=== PATIENT | female | born 1995 | race American Indian/Alaskan Native ===

== ENCOUNTER 2017-11-06 23:10 | Inpatient (IN) | payer MEDICAID ==
[2017-11-07] MEDS ORDERED: Ondansetron 4 MG/2 ML SDV IV PRN (00:01)
[2017-11-07] MEDS ORDERED: Lidocaine 1% 30 ML SDV INJECT PRN (00:01)
[2017-11-07] MEDS ORDERED: Acetaminophen 325 MG Tab PO PRN (00:01)
[2017-11-07] MEDS ORDERED: Methylergonovine 0.2 MG/1 ML Amp IM PRN (00:01)
[2017-11-07] MEDS ORDERED: Misoprostol 400 MCG (4 X 100 MCG TAB) RECTAL PRN (00:01)
[2017-11-07] MEDS ORDERED: Carboprost Tromethamine 250 MCG/1 ML Amp IM PRN (00:01)
[2017-11-07] MEDS ORDERED: Lactated Ringers 500 ML IV ONE (00:01)
[2017-11-07] MEDS ORDERED: Tranexamic Acid 1,000 MG in Sodium Chloride 0.9% 100 ML IV PRN (00:01)
[2017-11-07] MEDS ORDERED: Sodium Chloride 0.9% 10 ML Syringe FLUSH PRN (00:01)
[2017-11-07] MEDS ORDERED: Oxytocin/Normal Saline 30 UNIT/500 ML BAG IV SCH ×2 (00:45→10:00)
--- NOTE | 2017-11-07 02:30 | HP ---
CHIEF COMPLAINT: Increasing frequency and severity of contractions. HISTORY OF PRESENT ILLNESS: A 22-year-old , presented to the hospital at 38 weeks 3 days' gestation based on last menstrual period and 22-week ultrasound, reporting increasing severity and frequency of contractions. Contractions have been occurring approximately 6 in an hour throughout the day and then increased in number to now every 6 minutes apart. Severity increased around 9:00 p.m. on 11/06/2017. Reports the contractions are now about 6/10 in severity. On cervical exam, she was found to be 4 cm dilated, 90% effaced with intact membranes. She reports she has had headaches for the past 2 weeks and tonight she started seeing floating spots in her vision. She has had swollen hands and feet throughout the last few weeks of . movement has been good overall. She has had 1 episode of sharp right upper quadrant pain yesterday that lasted about approximately 10 seconds. HISTORY: care at [facility] with Lizzie Freed for first 33 weeks, care transferred to Dr. Yakov Zaldivar. History of twins on maternal side of family. Blood type AB positive, antibody screen negative, rubella immune, RPR nonreactive, HIV nonreactive, HBsAg negative. GC, chlamydia, and wet prep negative for bacterial vaginosis. One- hour glucose test of 100. Hepatitis C negative. Menarche age 15, irregular cycles PAST MEDICAL HISTORY: Anemia of . PAST SURGICAL HISTORY: [place] teeth removal. FAMILY HISTORY: Mother with allergies and asthma. Father, no known medical conditions. Maternal grandmother with diabetes and hypertension, currently with liver failure. No known history of father's parents. SOCIAL HISTORY: The patient is not , but is living with father of the baby, Sole Em, this is their first child together. 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 CURRENT MEDICATIONS: 1. vitamin. 2. Iron supplement. ALLERGIES: No known allergies. REVIEW OF SYSTEMS: No shortness of breath, fever, or chills. No nausea or vomiting. No diarrhea or constipation. Does have mild swelling of the ankles. Positive for headache for the past 2 weeks, floating spots in vision. One episode of sharp right upper quadrant pain. No skin rash. PHYSICAL EXAMINATION: Vital Signs: 98.5 F Temp, Pulse 67, BP 171/82, recheck 10 minutes later of 145/ 82. Respirations 16 on Room air HEENT: Head is normocephalic and atraumatic. Mucosal membranes are moist. Neck: Supple. No adenopathy. Heart: Regular without any murmur. Lungs: Clear to auscultation bilaterally. Abdomen: Gravid, nontender. Baseline heart rate 130. Nonreactive stress test reassuring category 1 tracing. Cervix 4 cm, 90% effaced. Bag of water intact. Bag of water was ruptured with Amnio Hook, clear fluid with slight pink color. LABORATORY DATA: Hemoglobin of 11.5, platelets 211. AST 20, ALT 12. Protein: Creatinine Ratio of 0.08. Creatinine of 0.7. Trace protein, ketones, and moderate leukocyte esterase in urine. ASSESSMENT: 1. A now 38 weeks 4 day gestation with intrauterine based on last menstrual period. 2. 1, para 0. 3. Blood type AB positive, rubella immune, group B strep negative. 4. Anemia in . 5. Rule out gestational hypertension versus preeclampsia. PLAN: With gestational htn and active labor, will proceed as above. At this time, anticipate that the rupture of membranes will continue to progress in the patient through labor. Anticipating a vaginal delivery. The patient understands things may change or arise that she may need alternate delivery such as vacuum-assisted section. The patient's questions about pain control options during delivery were answered, and all other questions have been answered. seen and agreed with med student-ROLY. [facility] /[id number] DAMARI
[2017-11-07] MEDS: Lactated Ringers 1,000 ML IV SCH ×5 (02:55→22:16)
[2017-11-07] MEDS ORDERED: Bupivacaine 0.75%/D5W 2 ML Amp ONE (05:01)
[2017-11-07] MEDS ORDERED: fentaNYL 100 MCG/2 ML SDV ONE (05:01)
[2017-11-07] MEDS ORDERED: EPINEPHrine 1 MG/ML SDV ONE (05:02)
--- NOTE | 2017-11-07 05:31 | PCM.SN ---
- Free Text/Narrative Note: Intrathecal. Sitting position. Sterile prep and drape. 1 % lidocaine w bicarb for skinwheal to L3 L4 interspace. Introducer, 24 ga pencan x 1. Pos CSF, neg heme, neg parasthesia. 20 mcg pf sufenta, 30 mcg pf fentanyl, 0.4 ml pf ns and 6 mg of 0.75 % pf bupivacaine injected after CSF aspiration. Pt to L lateral position. Procedure time 0500 to 0535.
--- NOTE | 2017-11-07 08:40 | OBOUT ---
DATE: 11/06/2017 DATE AND TIME OF NST: Date: 11/06/2017. Time: 2320 hours to 2340 hours. REASON FOR NST: 1. Intrauterine at 38 and 3/7 weeks', going on to 38 and 4/7 weeks' on 11/07/2017, confirmed with 22-week ultrasound. 2. Gestational hypertension versus preeclampsia. 3. Active labor with contractions and cervical change. 4. Group B streptococcus negative. 5. G1, P0. NST INTERPRETATION: During this time period, heart tone baseline is approximately 145 and there are at least two 15 x 15 beat per minute accelerations making this strip reactive. It is also noted to be reassuring. Tocometer reveals potential of 6 contractions felt by patient and she is breathing through them. ASSESSMENT: 1. Nonstress test, reactive and reassuring. 2. Tocometer with contractions. The patient is breathing through them. Blood pressure initially 171/82, heart rate 67, temperature 98.5. Recheck 145/82, heart rate 59. Vaginal exam per nurse revealed her to be 4 cm, 90% effaced, vertex suspected, and bag of water felt. I was called shortly after this NST was performed, and I did discuss the case with the nurse and decision was to admit the patient with the need for further evaluation and management. For history and physical, records were called for, reviewed, summarized and supplemented by patient history. Please see Gloria Varma, MS-III notes in regard to this, done in conjunction with her. In addition, review of systems were reviewed fully and felt to be contributory for what is listed. On organ pipe finisher of 11/07/2017, around 0013 hours vaginal exam done by myself did reveal her to be 4 cm, 90% effaced, 0 to +1 station, vertex suspected and artificial rupture of membranes was done after discussion with patient yielding copious amounts of pinkish clear fluid. PLAN: The patient has been admitted. The above procedures had been performed with NST first and then subsequent artificial rupture of membranes. Discussed with patient pain management options. Following clinically and closely. We will await labs for her preeclampsia and follow for any signs or symptoms of severe preeclampsia otherwise. The patient understands and agrees with the above treatment plan. Did discuss with her the potential treatment options to prevent seizures and stroke related to preeclampsia as well as potential need for further augmentation of labor. [facility] /[id number]
[2017-11-07] MEDS ORDERED: ceFAZolin 2 GM in Premix Bag 1 BAG IV ONE (09:46)
[2017-11-07] MEDS ORDERED: Citric Acid/Sodium Citrate Solution 30 ML Cup PO ONE (09:46)
[2017-11-07] MEDS ORDERED: ePHEDrine 50 MG/ML SDV IVPUSH PRN (09:47)
[2017-11-07] MEDS ORDERED: Acetaminophen/oxyCODONE 325-5 MG Tab PO PRN ×2 (09:47)
[2017-11-07] MEDS ORDERED: Naloxone 2 MG/2 ML Syringe IVPUSH PRN (09:47)
[2017-11-07] MEDS ORDERED: diphenhydrAMINE 50 MG/ML SDV IVPUSH PRN (09:47)
--- NOTE | 2017-11-07 09:51 | PN ---
DATE: 11/07/2017 SUBJECTIVE: The patient is starting to feel some discomfort as her intrathecal is wearing off. She is able to move her feet. She has been starting to feel her contractions now and having urges. OBJECTIVE: Vital Signs: Temperature 100.4, recheck 100.3; O2 saturations 96% on room air. Appearance: Lying in the bed, able to lie flat. Breathing through some of her contractions. Vaginal: Reveals her to be anterior rim, 0 to +1 station, vertex suspected with bloody show noted. heart tones have been in the 140s to 150s. One acceleration noted with vaginal exam. Tocometer reveals contractions every 2 to 4 minutes. ASSESSMENT: Intrauterine at 38 and 4/7 weeks, confirmed with a 22- week ultrasound with gestational hypertension with no labs to suggest preeclampsia. She was admitted in active labor. Group B Streptococcus negative. G1, P0, now status post nonstress test upon admission. Artificial rupture of membranes and Pitocin on 11/07/2017, with nearing second stage of labor. Starting to feel pain at this time. PLAN: We will continue to follow clinically and closely. In light of her fever, I did discuss with her following status closely. Consider delivery as soon as possible and proceed from there. The patient understands and agrees with the above treatment and plan. [facility] /[id number]
[2017-11-07] MEDS ORDERED: Methylergonovine 0.2 MG/1 ML Amp ONE (11:06)
--- NOTE | 2017-11-07 12:37 | PN ---
DATE: 11/07/2017 SUBJECTIVE: The patient has been feeling her pain. She has been pushing for over 2 and almost 2.5 hours at this current time of dictation. She has been pushing with good effort. OBJECTIVE: heart tones 120s to 130s, 2 accelerations are seen on current strip. Tocometer reveals contractions every 2 minutes on average. Vaginal exam reveals her to be complete with good pushing effort, and arrest of descent with no evidence of descent since she was initially evaluated by myself when she was found to be 9 cm. ASSESSMENT AND PLAN: Intrauterine at 38 and 4/7 weeks, now nearing prolonged second stage of labor with arrest of descent. I did discuss the patient's case with the patient and shared decision and recommendation made to proceed with section. I did discuss with her, her mother and her male partner, risks, benefits, alternatives, and complications of including but not limited to infection; bleeding; damage to internal organs such as bowel, bladder, tubes, uterus, sometimes fetus, rarely needing blood transfusion or further surgery, and rare maternal or . She understands, agrees, and wishes to proceed. Verbal and written consent were obtained. Questions were answered. We will proceed to the OR when ready. [facility] /[id number] DAMARI
[2017-11-07] MEDS ORDERED: Dexamethasone 4 MG/ML SDV IV ONE (12:54)
[2017-11-07] MEDS ORDERED: ePHEDrine 50 MG/ML SDV IV ONE (12:54)
[2017-11-07] MEDS ORDERED: Ketorolac 30 MG/ML SDV IVPUSH ONE (12:54)
[2017-11-07] MEDS ORDERED: Bupivacaine 0.75%/D5W 2 ML Amp INJECT ONE (12:54)
[2017-11-07] MEDS ORDERED: Ondansetron 4 MG/2 ML SDV IV ONE (12:54)
[2017-11-07] MEDS ORDERED: Morphine PF 1 MG/ML Amp IVPUSH ONE (12:54)
[2017-11-07] MEDS ORDERED: fentaNYL 100 MCG/2 ML SDV ITHECAL ONE (12:58)
[2017-11-07] MEDS ORDERED: Sodium Chloride 0.9% 10 ML SDV ONE (12:58)
--- NOTE | 2017-11-07 15:19 | OR ---
DATE: 11/07/2017 PREOPERATIVE DIAGNOSES: 1. Intrauterine 38 and 4/7 weeks, confirmed with a 22-week ultrasound. 2. Prolonged second stage of labor. 3. Arrest of descent. 4. Gestational hypertension. 5. Active labor upon admission. 6. Group B Streptococcus negative. 7. G1, P0. POSTOPERATIVE DIAGNOSES: 1. Intrauterine 38 and 4/7 weeks, confirmed with a 22-week ultrasound-delivered. 2. Prolonged second stage of labor. 3. Arrest of descent. 4. Gestational hypertension. 5. Active labor upon admission. 6. Group B Streptococcus negative. 7. G1, P0. 8. [place]-tinged urine initially after delivery of the infant, clearing currently. 9. Occiput posterior presentation. 10.Uterine atony, requiring Methergine. PROCEDURES PERFORMED: 1. On 11/06/2017, a nonstress test. 2. On 11/07/2017, underwent artificial rupture of membranes, Pitocin augmentation, and subsequently primary low transverse section with 2-layer uterine closure. ASSISTANTS: 1. Harrison Zapata MD. 2. Gloria Varma MS-III. ANESTHESIA: Spinal. ESTIMATED BLOOD LOSS: 800 mL. INTRAVENOUS FLUIDS: 1500 mL of lactated Ringer's and 300 mL of Pitocin. URINE OUTPUT: 200 mL; pink-tinged initially, now clearing to more of a yellow color. START: 1047 hours. UTERINE INCISION: 1058 hours. DELIVERY: 1059 hours. STOP: 1118 hours. FINDINGS: Female, scores of 9 and 9, weight pending. DESCRIPTION OF PROCEDURE IN DETAIL: After proper consent was obtained, the patient was brought to the operating room where spinal anesthetic was administered. A Krause was placed in the preop under sterile conditions. The abdomen was prepped and draped in the normal sterile fashion. The patient was placed in supine position with left lateral tilt. A skin incision was then made over the lower abdomen in a transverse Pfannenstiel-type fashion. This was carried down the fascia and scored in the midline. The subcutaneous tissue was raked laterally with Heredia retractor, and the fascial incision was extended in transverse fashion using curved Mancini's. Pola clamps x2 were used to grasp the superior aspect of fascia. The rectus muscles were dissected from the fascia using sharp and blunt technique. In a similar fashion, Pola clamps x2 were used to grasp the inferior portion of the incision; and rectus and pyramidalis muscles were dissected from the fascia using sharp and blunt technique. Rectus muscles were then in the midline with blunt technique. The abdominal cavity was then entered in a blunt technique. Incision was extended superiorly and inferiorly in a blunt technique. Phil O large retractor was then introduced and used. Vesicouterine peritoneum was identified and incised in transverse fashion with Metzenbaum scissors, and a bladder flap was made digitally. A curvilinear incision was made on the lower uterine segment at 1058 hours. Uterus was entered sharply. Clear fluid returned. The uterine incision was then extended in a transverse fashion using blunt technique. vertex was then delivered from the pelvis up into and through the incision followed by rest of the without difficulty. Mouth and nares were suctioned. Cord was doubly clamped and cut, and the infant was brought over to the team. Then, approximately 10 mL of cord blood was obtained for labs. Placenta was delivered with gentle cord traction and fundal massage. Uterine cavity was cleared of all blood clots, and debris with a lap sponge. Hanson clamps were used to grasp the incision. This was closed in a running locked fashion and tied at the lateral margin with 1-0 Vicryl. There was some extension of the uterine incision minimally on the left lateral portion inferiorly approximately 1.5 cm, which was incorporated in this repair. Uterine atony was noted, and Methergine was called for and given. A second imbricating layer was then applied using 1-0 Vicryl and tied at the lateral margins. First inspection of the uterine incision revealed hemostasis. Phil O retractor was then removed; and paracolic gutters were then cleared of all blood clots, and debris with lap sponge. Anterior cul-de-sac was irrigated copiously, and all blood clots were removed. Second and final inspection of the uterine incision and anterior cul-de-sac revealed hemostasis. The rectus muscles were then reapproximated in the midline with a figure-of- eight stitch using 1-0 Vicryl. Subfascial tissue was found to be hemostatic. Fascia was closed in a running fashion and tied at the lateral margin with 0 looped PDS. Subcutaneous tissue was irrigated copiously. Hemostasis ws reassured. Skin was reapproximated with medium lexi. Sterile Aquacel dressing was applied. The uterine fundus was firm and massaged at the conclusion of the case. No immediate complications were noted. Sponge, lap, and needle counts were correct. The patient received 2 g of Ancef preoperatively and Pitocin per protocol and will receive Toradol at the conclusion of the case for pain control. Mother and are currently stable at the time of dictation. [facility] /[id number] DAMARI
[2017-11-07] MEDS: Simethicone 80 MG Tab.Chew PO SCH ×3 (15:35→23:09)
[2017-11-07] MEDS ORDERED: Oxytocin/Normal Saline 30 UNIT/500 ML BAG IV ONE (15:40)
[2017-11-07] MEDS: Ketorolac 30 MG/ML SDV IVPUSH SCH ×2 (17:25→23:10)
[2017-11-07] MEDS: Docusate Sodium 100 MG Cap PO PRN (23:09)
[2017-11-08] MEDS: Ketorolac 30 MG/ML SDV IVPUSH SCH (05:28)
--- NOTE | 2017-11-08 10:32 | PN ---
DATE: 11/08/2017 SUBJECTIVE: The patient states she is feeling well. She is sitting up in bed and has appetite for her morning breakfast. Se has been able to ambulate in the room: denies pain radiating down the back of her legs, in her lower back, or gait disturbances. Krause catheter still in place and draining a clear yellow urine. Her lochia amount is described as more than a menstrual period. She does not have any abdominal pain. There is shadowing on her Aquacel dressing over the umbilical site, localized to the center of the Aquacel dressing, approximately 6 cm long and 2 cm high. Nurses have marked the borders of the shadowing to evaluate further spread during recovery. The patient denies fever, chills, headache, nausea, shortness of breath. OBJECTIVE: Vital Signs: Temperature 98.4, pulse 70, respirations 16 on room air, blood pressure 132/63. HEENT: Head normocephalic, atraumatic. Mucosal membranes are moist. Pupils PERRLA. Heart: S1, S2 and regular rate and rhythm. There is a soft systolic murmur at the left sternal border. Lungs: Clear to auscultation bilaterally. No crackles or wheezes. Abdomen: Bowel sounds auscultated in the upper left and right quadrants. Fundus is firm, 1 cm below the umbilicus. Extremities: There is +1 edema in feet bilaterally. Neurologic: Alert and oriented x3. Skin: Warm and dry. LABORATORY DATA: Hemoglobin of 9.9, platelets 178. ASSESSMENT: - Day 1 post-primary section at 38w4d gestation - 22 yo - Gestational hypertension - AB positive blood type, GBS negative, Rubella immune - Prolonged 2nd stage of labor - Macrosomic infant > 4000 g Murmur most likely physiologic murmur of due to increased blood volume. PLAN: Continue routine cares. Mother will continue to breastfeed infant. Expecting discharge home the day after tomorrow, possibly tomorrow evening. Followup will be with Dr. Zaldivar at the appropriate time. [facility] /[id number] DAMARI
[2017-11-08] MEDS: Ferrous Sulfate 325 MG Tab PO SCH (12:52)
[2017-11-08] MEDS: Simethicone 80 MG Tab.Chew PO SCH ×4 (12:52→21:03)
[2017-11-08] MEDS: Docusate Sodium 100 MG Cap PO PRN ×2 (12:53→21:03)
[2017-11-08] MEDS: Ibuprofen 800 MG Tab PO PRN ×2 (14:12→21:05)
[2017-11-09] MEDS: Ferrous Sulfate 325 MG Tab PO SCH (09:01)
[2017-11-09] MEDS: Ibuprofen 800 MG Tab PO PRN ×2 (09:01→17:32)
[2017-11-09] MEDS: Docusate Sodium 100 MG Cap PO PRN ×2 (09:01→22:32)
[2017-11-09] MEDS: Simethicone 80 MG Tab.Chew PO SCH ×4 (09:02→22:34)
--- NOTE | 2017-11-09 10:06 | PN ---
DATE: 11/09/2017 SUBJECTIVE: Day #2 post primary section. States she is feeling well, however her abdominal pain located at incision is starting to get worse, rating pain at 4/10. The patient received Percocet for pain control last night and is requesting Motrin for pain control after breakfast this morning. She states her lower back is sore, but relates this pain to her bed position. The patient is ambulating in the halls and within her room. She has not had a bowel movement, but is having flatulence. She noted blood clots in her urine this morning, lochia has decreased compared to yesterday. She is with feedings at 10 to 20 minutes at each breast. Denies headache, nausea, shortness of breath, difficulty walking, or pain with urination. Tolerating normal diet. OBJECTIVE: Vital Signs: Temperature 98.7, pulse is 67, blood pressure 132/69, and respirations 16 on room air. HEENT: Head is normocephalic and atraumatic. Mucosal membranes are moist. Heart: Regular without murmur. S1 and S2, regular rate and rhythm. Lungs: Clear to auscultation bilaterally. No wheezing or rhonchi. Abdomen: Bowel sounds auscultated in upper quadrants. Fundus is firm at 1 cm below the umbilicus. Aquacel dressing over incision site has no new shadowing. Extremities: Full range of motion. Minimal edema in feet. LABORATORY DATA: No new laboratory data today. ASSESSMENT: 1. A 22-year-old 1, para 1-0-0-1. 2. Day #2 post primary section at 38 weeks and 4 days' gestation. 3. Gestational hypertension. 4. AB positive blood type, group B Streptococcus negative, rubella immune. 5. Prolonged second stage of labor. 6. Macrosomic greater than 4000 g. 7. . PLAN: Continue routine care. Encouraged mother to breastfeed as long as she can on each side with each feeding to improve baby's jaundiced appearance and 9% weight loss. Expecting discharge home tomorrow. Follow up will be with Dr. Zaldivar, exact dates and times to be determined tomorrow. [facility] /[id number] [facility]
[2017-11-10] MEDS: Ibuprofen 800 MG Tab PO PRN ×2 (01:32→09:03)
[2017-11-10 05:56] VITALS: BP 130/73
[2017-11-10] MEDS: Simethicone 80 MG Tab.Chew PO SCH (09:02)
[2017-11-10] MEDS: Ferrous Sulfate 325 MG Tab PO SCH (09:03)
[2017-11-10] MEDS: Docusate Sodium 100 MG Cap PO PRN (09:04)
--- NOTE | 2017-11-11 07:04 | DISCH ---
ADMISSION DIAGNOSES: 1. 22 year old at 38 and 4/7 weeks' gestation by a 22-week ultrasound and last menstrual period. 2. 1, para 0. 3. Blood type AB positive, group B streptococcus negative, rubella immune. 4. Primigravida. DISCHARGE DIAGNOSES: 1. 22 year old at 38 and 4/7 weeks' gestation by a 22-week ultrasound and last menstrual period. 2. 1, now para 1-0-0-1. 3. Primary section. 4. Arrest of descent, prolonged second stage of labor. 5. Blood type AB positive, rubella immune, group B streptococcus negative. 6. Macrosomic infant, greater than 4000 g. 7. Anemia of . BRIEF HISTORY: A 22-year-old female presented to Labor and Delivery with increasing frequency and intensity of contractions. On cervical exam, she was 4 cm dilated, 90% effaced. Artificial rupture of membranes at 4 cm dilation, intrathecal for pain management at 6 cm dilated. See history and physical for further details. HOSPITAL COURSE: The patient began actively pushing in labor when she was 10 cm dilated, 100% complete. The patient pushed for 3 hours with no progression of infant beyond +1 station. The patient was brought to OR for section for arrest of descent and prolonged second stage of labor. On delivery, infant was in OP position with scores of 9 and 9, and weight of 4360 g. Since delivery, she has been ambulating in her room and in the halls, tolerating a regular diet, voiding without complication, and has had bowel movement. Her pain is managed with Motrin and Percocet. Lochia has been decreasing in amount. She passed a few clots yesterday, but has not passed any clots since. Incision is covered by Aquacel dressing on her lower abdomen with shadowing that was outlined by nurses. There is no a new shadowing beyond the outline. shadowing has remained constant for the last 2 days. The patient and the father of the baby have been actively involved in the care of the infant. Mother is , and has been able to help nurses with the supplementing after . She denies headaches, nausea, swelling in hands or feet. No right upper quadrant pain. No back pain or pain radiating down the back of her legs. DISCHARGE CONDITION: Good. PHYSICAL EXAMINATION: Vital Signs: Temperature 98.9, pulse of 71, blood pressure of 130/73, respiratory rate 14 on room air with 97% oxygen saturation. Heart: S1, S2. Regular rate and rhythm. No murmur. Lungs: Clear to auscultation bilaterally. Abdomen: Soft and nontender. Fundus is firm at 1 fingerbreadth below the umbilicus. Extremities: Improved edema in feet. No erythema or tenderness noted. LABORATORY DATA: Admission hemoglobin 11.5, hemoglobin on November 08 is 9.9. Admission platelets 211, platelets on november 08 is 178. DISPOSITION: Home with family. MEDICATIONS: 1. Percocet 5/325 one to two taken every 6 hours as needed for pain. 2. Iron 325 mg twice a day for 6 weeks. 3. Ibuprofen 600 mg every 6 hours as needed for pain. 4. Tylenol 650 mg every 6 hours as needed for pain. 5. Colace 100 mg twice daily as needed for constipation. DISCHARGE INSTRUCTIONS: The patient has to follow up with Dr. Zaldivar tomorrow, November 11, exact time to be determined for staple removal as well as weight check. She needs is to make a 6-week appointment with Dr. Zaldivar. During that 6 weeks, she should not lift anything over 25 pounds and needs to be on pelvic rest. While she is taking Percocet, she is not to drive, machinery, or operate her car. The iron supplement may cause some constipation for which she is able to take Colace. Routine section instructions were provided. The patient and her significant other's questions were answered. seen and agreed with medical student-ROLY. [facility] /[id number] DAMARI
== END 2017-11-10 11:00 | disposition home or self-care (01) | DRG 766 ==
LOC: DL.OBCHECK 23:10 → DL.OB 23:35 → UNDOADMOB 23:35 → DL.OB 11-07 10:59 → OBSVTOIN 11-07 10:59
PROVIDERS: ADMIT Family Medicine; ATTEND Family Medicine
PROC: 10D00Z1 Extraction of Products of Conception, Low, Open Approach (ICD-10-PCS; principal; 2017-11-07)
PROC: 6A550ZT Pheresis of Cord Blood Stem Cells, Single (ICD-10-PCS; 2017-11-07)
PROC: 10907ZC Drainage of Amniotic Fluid, Therapeutic from Products of Conception, Via Natural or Artificial Opening (ICD-10-PCS; 2017-11-07)
PROC: 00HU33Z Insertion of Infusion Device into Spinal Canal, Percutaneous Approach (ICD-10-PCS; 2017-11-07)
PROC: 3E0R3BZ Introduction of Anesthetic Agent into Spinal Canal, Percutaneous Approach (ICD-10-PCS; 2017-11-07)
DX: O99.02 Anemia complicating childbirth (principal); Z37.0 Single live birth; D64.9 Anemia, unspecified; O62.1 Secondary uterine inertia; O36.63X0 Maternal care for excessive fetal growth, third trimester, not applicable or unspecified; O13.4 Gestational [pregnancy-induced] hypertension without significant proteinuria, complicating childbirth; Z3A.38 38 weeks gestation of pregnancy; O64.0XX0 Obstructed labor due to incomplete rotation of fetal head, not applicable or unspecified
CPT/HCPCS: 01961; 01967; 36415; 81003; 82565; 82570; 83615; 84156; 84450; 84460; 84520; 84550; 85025; 85027; 86850; 86900; 86901; A9270-GY; J0690; J1100; J1885; J2274; J2405; J2590; J3010; J7120

== ENCOUNTER 2021-03-30 09:43 | Inpatient (IN) | payer SELFPAY ==
[2021-03-30] MEDS ORDERED: Ketorolac 30 MG/ML SDV IVPUSH ONE (09:44)
[2021-03-30] MEDS ORDERED: ePHEDrine 50 MG/ML SDV IV ONE (09:44)
[2021-03-30] MEDS ORDERED: Oxytocin/Normal Saline 30 UNIT/500 ML BAG IV ONE (09:44)
[2021-03-30] MEDS ORDERED: Phenylephrine 1% 10 MG/ML SDV IV ONE (09:44)
[2021-03-30] MEDS ORDERED: Lactated Ringers 1,000 ML IV ONE (09:44)
[2021-03-30] MEDS ORDERED: Morphine PF 10 MG/10 ML SDV ONE (09:44)
[2021-03-30] MEDS ORDERED: Naloxone 2 MG/2 ML Syringe IVPUSH PRN (10:00)
[2021-03-30] MEDS ORDERED: Ondansetron 4 MG/2 ML SDV IVPUSH PRN (10:00)
[2021-03-30] MEDS ORDERED: ceFAZolin 2 GM in Premix Bag 1 BAG IV ONE (10:00)
[2021-03-30] MEDS ORDERED: Acetaminophen 325 MG Tab PO PRN (10:00)
[2021-03-30] MEDS: Lactated Ringers 1,000 ML IV SCH ×4 (10:25→21:16)
[2021-03-30] MEDS ORDERED: Oxytocin/Normal Saline 60 UNIT/1,000 ML BAG ONE (10:31)
[2021-03-30] MEDS ORDERED: Citric Acid/Sodium Citrate Solution 30 ML Cup PO ONE ×2 (11:00→11:03)
[2021-03-30] MEDS ORDERED: diphenhydrAMINE 50 MG/ML SDV IVPUSH PRN (12:00)
[2021-03-30] MEDS ORDERED: Carboprost Tromethamine 250 MCG/1 ML Amp IM PRN (12:00)
[2021-03-30] MEDS ORDERED: Docusate Sodium 100 MG Cap PO PRN (12:00)
[2021-03-30] MEDS ORDERED: Methylergonovine 0.2 MG/1 ML Amp IM PRN (12:00)
[2021-03-30] MEDS ORDERED: Misoprostol 400 MCG (4 X 100 MCG TAB) RECTAL PRN (12:00)
[2021-03-30] MEDS ORDERED: Acetaminophen/oxyCODONE 325-5 MG Tab PO PRN ×2 (12:00)
[2021-03-30] MEDS ORDERED: Tranexamic Acid 1,000 MG in Sodium Chloride 0.9% 100 ML IV PRN (12:00)
[2021-03-30] MEDS ORDERED: ePHEDrine 50 MG/ML SDV IVPUSH PRN (12:00)
[2021-03-30] MEDS ORDERED: Oxytocin/Normal Saline 30 UNIT/500 ML BAG IV SCH (12:45)
[2021-03-30] MEDS ORDERED: HYDROmorphone 0.5 MG/0.5 ML Syringe IVPUSH ONE ×2 (16:41→18:00)
[2021-03-30] MEDS: Simethicone 80 MG Tab.Chew PO SCH ×2 (16:55→21:16)
[2021-03-30] MEDS: Ketorolac 30 MG/ML SDV IVPUSH SCH (18:28)
[2021-03-31] MEDS: Ketorolac 30 MG/ML SDV IVPUSH SCH ×2 (00:21→06:08)
--- NOTE | 2021-03-31 01:03 | OBOUT ---
DATE: 03/30/2021 TIME OF NST: 10:01 to 10:21. REASON FOR NST: 1. Intrauterine at 39 weeks confirmed by 21-week ultrasound. 2. Previous x1. Request repeat low-transverse . 3. Limited/insufficient care. 4. GBS negative. 5. -0-0-1. NST INTERPRETATION: During this time period, tone baseline is approximately 120 and at least two 15 x 15 beats per minute acceleration making this strip reactive as well as reassuring. Tocometer reveals potential of 1 to 2 contractions not felt by patient. Blood pressure 136/77, heart rate 65, temperature 98.7, recheck blood pressure 126/73. ASSESSMENT: 1. Nonstress test, reactive and reassuring. 2. Tocometer with contractions not suspected to be felt by the patient. PLAN: We will proceed to the OR as soon as crew is ready and available. Please see H and P done through [employer] and updated with update crushed stone grader it. For this, records were called for, reviewed, and supplemented by patient history. Review of systems reviewed fully and felt to be contributory as noted. [facility] /[id number]
[2021-03-31] MEDS ORDERED: Prenatal Multivitamin with Calcium/Folic Acid/Iron Tab PO SCH (09:00)
[2021-03-31] MEDS: Simethicone 80 MG Tab.Chew PO SCH ×5 (09:24→21:28)
[2021-03-31] MEDS ORDERED: Acetaminophen 325 MG Tab PO PRN (11:36)
[2021-03-31] MEDS ORDERED: Acetaminophen/oxyCODONE 325-5 MG Tab PO PRN (11:37)
[2021-03-31] MEDS: Acetaminophen/oxyCODONE 325-5 MG Tab PO PRN ×3 (11:45→21:28)
--- NOTE | 2021-03-31 12:10 | PN ---
DATE: 03/31/2021 SUBJECTIVE: Postoperative day #1, status post elective repeat low transverse section without complications. Estimated blood loss 600 mL. Patient reports that she is doing well. Minimal vaginal bleeding. No chest pain or shortness of breath. Overnight, she did complain of some mid back pain, sharp in quality, that is now resolved, seems to be consistent with being caused by some gas pains. Still not passing much in the way of flatus, has not had a bowel movement. Krause catheter has been removed, and she reports that she is able to void. seems to be going overall well. However, she is concerned that her milk has not really come in yet but handling that pretty well. No other acute concerns at this time. OBJECTIVE: General: Well-appearing 25-year-old female. Vital Signs: Temperature is 98.6, pulse 66, blood pressure 121/64, respiratory rate of 18, and O2 saturations 99% on room air. Heart: Regular without murmur. Lungs: Clear to auscultation bilaterally with good chest expansion. Abdomen: Soft. Minimal distention noted. Hypoactive but positive bowel sounds in all 4 quadrants. Dressing is clean, dry, and intact. Fundus is firm and below the umbilicus. Extremities: KAYCEE hoses are on. No obvious warmth to touch. No edema is seen. LABORATORY DATA: Hemoglobin is down to 8.1 from a previous 9.2, platelet count 215. DIAGNOSES: 1. Status post repeat section day 1. 2. Insufficient care. 3. History of gestational hypertension in prior . 4. Anemia of and acute blood loss. 5. Group B Streptococcus negative. Rubella immune. Blood type AB-positive. PLAN: Anticipate continued normal postoperative cares with discharge home either on postoperative day 2 or 3 pending her clinical course and her comfort level with going home. Questions have been answered regarding normal postoperative signs, symptoms, and concerns as well as additional support for her . [facility] /[id number]
--- NOTE | 2021-03-31 15:09 | OR ---
DATE: 03/30/2021 PREOPERATIVE DIAGNOSES: 1. Intrauterine at 39 weeks by 21-week ultrasound. 2. Previous section x1, requests repeat low transverse . 3. Insufficient care. 4. Group B strep negative. 5. -0-0-1. POSTOPERATIVE DIAGNOSES: 1. Intrauterine at 39 weeks by 21-week ultrasound - delivered. 2. Previous section x1, requests repeat low transverse . 3. Insufficient care. 4. Group B strep negative. 5. -0-0-1. 6. Difficulty delivering vertex, requiring kiwi vacuum assistance. PROCEDURE PERFORMED: Nonstress test followed by repeat low transverse C- section. Procedure performed by Yakov Zaldivar MD. VETERINARIAN EPIDEMIOLOGIST: KALLIE Prince and Suri Guy MD. ANESTHESIA: Spinal. EBL: 600 mL. IV FLUIDS: 1500 mL. URINE OUTPUT: 500 mL and clear yellow. START: 12:13. UTERINE INCISION: 12:17. DELIVERY: 12:19. STOP: 12:35. FINDINGS: Female. score of 9 and 9. Weight pending. DESCRIPTION OF PROCEDURE: After proper consent obtained, patient was brought to the operating room where spinal anesthetic was administered. Krause was placed under preop under sterile conditions. The abdomen was prepped and draped in normal sterile fashion. The patient was placed in supine position with left lateral tilt. A skin incision was made over lower abdomen in transverse Pfannenstiel-type fashion over previous scar. This was carried down to the fascia and scored in midline. Subcutaneous tissue was raked laterally with Heredia retractor. Fascial incision was extended in transverse fashion using curved Mancini's. Pola clamps x2 used to grasp the superior aspect of the fascia and rectus muscles dissected from the fascia using sharp and blunt technique. In similar fashion, Pola clamps x2 used to grasp the inferior portion of the incision. Rectus and pyramidalis muscles were dissected from the fascia using sharp and blunt technique. Rectus muscles were in the midline with blunt technique. Abdominal cavity was entered with blunt technique, and incision was extended superiorly and inferiorly with blunt technique. Phil O large retractor was then introduced and used. Vesicouterine peritoneum was then identified, incised in transverse fashion with Metzenbaum scissors and bladder flap was made digitally. A curvilinear incision was made on the lower uterine segment at 1217 hours. Uterus was entered sharply, clear fluid returned. Uterine incision was then extended in transverse fashion using blunt technique. vertex was then attempted to be delivered through the incision through the abdomen with some difficulty despite fundal pressure. Therefore, kiwi vacuum was called for, applied to the vertex, pumped up to the green, further descent was noted. Vacuum was disengaged and then reapplied to the vertex for better traction, pumped up to the green with gentle pulling and fundal pressure. vertex was delivered. Rest of the delivered with minimal difficulty. Vacuum was disengaged after vertex was delivered. Mouth and nares were suctioned. Cord was doubly clamped and cut. Infant was brought over to team. Then, approximately 10 mL of cord blood obtained for labs. Placenta then delivered with gentle cord traction and fundal massage. Uterine cavity then cleared of all blood clots and debris with lap sponge. Hanson clamps were used to grasp the uterine incision. This was closed in a running locked fashion and tied lateral margins with 1-0 Vicryl. Left to the midline of incision, there was some bleeding, 1 [id number] stitch was applied, and hemostasis reassured. First inspection of the uterine incision revealed hemostasis. Phil O retractor was then removed and paracolic gutters were then cleared of all blood clots and debris with lap sponge. Anterior cul-de-sac was then irrigated copiously. All blood clots were removed. Second and final inspection of the uterine incision and anterior cul-de-sac revealed hemostasis. Rectus muscles were then reapproximated in midline with [id number] stitch using 1-0 Vicryl. Subfascial tissues were found to be hemostatic. Fascia was closed in a running fashion tied at lateral margins with looped PDS. Subcutaneous tissue irrigated copiously. Hemostasis was reassured. Skin was reapproximated with medium lexi. Sterile Aquacel dressing applied. Uterine fundus was firm and massaged at the conclusion of the case, +1 above the umbilicus. No immediate complications were noted. Sponge, lap, and needle counts were correct. The patient received 2 g of Ancef preoperatively, Pitocin per protocol, and received Toradol at the conclusion of the case for pain control. Mother and infant are currently stable at the time of dictation. [facility] /[id number]
[2021-03-31] MEDS ORDERED: Ibuprofen 800 MG Tab PO PRN (15:30)
[2021-03-31] MEDS: Ferrous Sulfate 325 MG Tab PO SCH (17:03)
[2021-03-31] MEDS: Ibuprofen 800 MG Tab PO PRN (17:03)
[2021-03-31] MEDS: Docusate Sodium 100 MG Cap PO PRN (21:28)
[2021-04-01] MEDS: Ibuprofen 800 MG Tab PO PRN ×3 (00:52→21:43)
[2021-04-01] MEDS: Acetaminophen/oxyCODONE 325-5 MG Tab PO PRN ×4 (02:01→20:21)
[2021-04-01] MEDS: Prenatal Multivitamin with Calcium/Folic Acid/Iron Tab PO SCH ×2 (07:55→09:20)
[2021-04-01] MEDS: Docusate Sodium 100 MG Cap PO PRN ×2 (07:55→20:21)
[2021-04-01] MEDS: Ferrous Sulfate 325 MG Tab PO SCH ×2 (07:55→18:15)
[2021-04-01] MEDS: Simethicone 80 MG Tab.Chew PO SCH ×5 (07:57→20:21)
--- NOTE | 2021-04-01 12:45 | PN ---
DATE: 04/01/2021 SUBJECTIVE: Postop day #2, repeat low-transverse section at term in a 25-year-old 2, now para 2-0-0-2 mother. She had an uneventful surgery. She has been breast-feeding and feels like her milk is finally starting to come in and that baby is getting a little bit more. Baby does not like to eat off the left side, so she will usually start on the right and then quickly transition the baby to the left, but reports that she will put the baby back on the right before the nursing episode is over. Otherwise, she has to be in a football hold in order to nurse. Kaci is denying any chest pain or shortness of breath. Incisional pain is a little bit better today than it was yesterday. She is ambulating without difficulties and tolerating a regular diet, voiding without problems, passing flatus, and has not yet had a bowel movement. No fever or chills. No nausea or vomiting. No acute concerns. OBJECTIVE: Vital Signs: Temperature is 98, pulse is 67, blood pressure 126/74, respiratory rate of 16, O2 saturations 98% on room air. Heart: Regular without murmur. Lungs: Clear to auscultation bilaterally. Abdomen: Soft, nontender. Fundus firm and below the umbilicus. Aquacel dressing is clean, dry, and intact. Extremities: No edema, erythema, or tenderness noted. LABORATORY DATA: No new labs today. Last hemoglobin was 8.1, platelets of 215. ASSESSMENT: 1. Postop day #2, status post repeat low transverse section. 2. Anemia of and acute blood loss. 3. mother. 4. History of gestational hypertension in prior . PLAN: Continue routine postoperative cares and anticipate discharge home tomorrow. Discussed with mom that baby's weight is down 8.2%, so I think they would benefit from a little bit more time in the hospital for some extra assistance and to make sure that baby continues to do well. Her questions have been answered. [facility] /[id number]
[2021-04-02] MEDS: Acetaminophen/oxyCODONE 325-5 MG Tab PO PRN ×2 (02:54→08:02)
[2021-04-02] MEDS: Docusate Sodium 100 MG Cap PO PRN (08:00)
[2021-04-02] MEDS: Prenatal Multivitamin with Calcium/Folic Acid/Iron Tab PO SCH (08:01)
[2021-04-02] MEDS: Ibuprofen 800 MG Tab PO PRN (08:01)
[2021-04-02] MEDS: Ferrous Sulfate 325 MG Tab PO SCH (08:01)
[2021-04-02] MEDS: Simethicone 80 MG Tab.Chew PO SCH (08:01)
[2021-04-02 09:30] VITALS: BP 135/78; PULSE 73
--- NOTE | 2021-04-02 09:34 | DISCH ---
ADMITTING DIAGNOSES: 1. Intrauterine at 39 weeks by 21 weeks ultrasound. 2. Previous , requests repeat low transverse . 3. Insufficient care. 4. GBS negative. 5. G2, P1-0-0-1. 6. Anemia of with hemoglobin 9.2. DISCHARGE DIAGNOSES: 1. Intrauterine at 39 weeks by 21 weeks ultrasound - delivered. 2. Previous , request repeat low transverse . 3. Insufficient care. 4. GBS negative. 5. G2, P1-0-0-1. 6. Difficulty delivering vertex, requiring Kiwi vacuum assistance. 7. Anemia of acute blood loss. Hemoglobin dropping down to 8.1 - asymptomatic. PROCEDURE PERFORMED: Nonstress test followed by repeat low transverse with Kiwi vacuum assistance per Dr. Zaldivar. HISTORY OF PRESENT ILLNESS: Please see H and P. SUMMARY OF HOSPITAL COURSE: The patient was admitted on the above date with above diagnosis, underwent repeat low transverse yielding a female, score 9 and 9, weighing 3700 g (8 pounds 2 ounces) requiring Kiwi vacuum assistance. Please see op report for further details. Postop day 1 and 2, please see progress notes. Postop day #3, date of discharge, the patient is tolerating p.o., was ambulating, urinating, passing flatus, requesting discharge. PHYSICAL EXAMINATION: Vital Signs: Temperature 98.2, heart rate 68, blood pressure 113/68, respiratory rate 16. Lungs: Clear to auscultation bilaterally. Heart: S1, S2. Regular rate and rhythm. Genitourinary: Firm uterus, +1 below umbilicus. Aquacel dressing appears dry and intact. Extremities: No peripheral edema. No calf pain. LABORATORY DATA: Postop day 1, hemoglobin was 8.1 compared to predelivery hemoglobin of 9.2. CONDITION ON DISCHARGE COMPARED TO CONDITION ON ADMISSION: Improved. DISCHARGE INSTRUCTIONS: 1. Diet as tolerated. 2. Activity: No lifting more than 20 pounds. No sit-ups or straining. Pelvic rest for the next 6 weeks with immediate return to fertility discussed. 3. Reasons to return or go to the emergency room discussed with the patient in detail including but not limited to temperature greater than 100.4; foul- smelling discharge; red, hot, or tender breasts; increased vaginal bleeding, or increasing pain, drainage, or redness around the incision. DISCHARGE MEDICATIONS: [id number] Tylenol AND ibuprofen for pain; iron sulfate 325 b.i.d. x6 weeks; Colace 100 mg b.i.d. p.r.n., #60, no refills; and Percocet 5/325 1 to 2 q.6 hours p.r.n., #20, no refills; and electric breast pump script was also given. FOLLOWUP: Tomorrow, 04/03/2021, for staple removal in the clinic with her baby. Did discuss with her the importance of followup and ramifications of not doing so, as well as reasons to go to emergency room in regard to her baby. Please see discharge paperwork for further details. [facility] /[id number]
== END 2021-04-02 09:25 | disposition home or self-care (01) | DRG 787 ==
LOC: DL.OB 09:43 → DL.MS 12:04 → EEVIPCON 12:19 → OBSVTOIN 12:19
PROVIDERS: ADMIT Family Medicine; ATTEND Family Medicine
PROC: 10D00Z1 Extraction of Products of Conception, Low, Open Approach (ICD-10-PCS; principal; 2021-03-30)
DX: O34.211 Maternal care for low transverse scar from previous cesarean delivery (principal); D62 Acute posthemorrhagic anemia; O99.02 Anemia complicating childbirth; Z20.822 Contact with and (suspected) exposure to COVID-19; Z37.0 Single live birth; Z3A.39 39 weeks gestation of pregnancy; Z28.82 Immunization not carried out because of caregiver refusal
CPT/HCPCS: 01961; 36415; 85027; A9270-GY; J0690; J1170; J1885; J2270; J2370; J2590; J7120; U0002

== ENCOUNTER 2021-09-19 23:04 | Emergency (ER) | payer SELFPAY ==
[2021-09-19 23:24] VITALS: BP 124/74; PULSE 71
[2021-09-20] MEDS ORDERED: Ibuprofen 600 MG Tab PO ONE (00:08)
== END 2021-09-20 00:40 | disposition home or self-care (01) ==
LOC: DL.ED 23:04
DX: S63.502A Unspecified sprain of left wrist, initial encounter (principal); W19.XXXA Unspecified fall, initial encounter
CPT/HCPCS: 73110-LT; 99282; 99284; A9270-GY

== ENCOUNTER 2022-03-03 20:31 | Emergency (ER) | payer MEDICAID ==
[2022-03-03 22:09] VITALS: BP 131/62; PULSE 98
== END 2022-03-04 01:53 | disposition left against medical advice (07) ==
LOC: DL.ED 20:31
DX: Z53.21 Procedure and treatment not carried out due to patient leaving prior to being seen by health care provider (principal)

== ENCOUNTER 2024-12-22 18:45 | Emergency (ER) | payer BC, MEDICAID, OTHER ==
[2024-12-22] MEDS: Iopamidol 612 MG/ML 100 ML Bottle IVPUSH ONE (19:22)
[2024-12-22] MEDS: Ondansetron 4 MG/2 ML SDV IVPUSH ONE (19:28)
[2024-12-22] MEDS: Sodium Chloride 0.9% 1,000 ML IV ONE (19:29)
[2024-12-22] MEDS: Morphine 4 MG/ML VIAL IVPUSH ONE (19:30)
[2024-12-22 19:32] LABS: BASOPHILS PERCENT AUTO 0.6 % (0.0-1.0); EOSINOPHILS PERCENT AUTO 1.9 % (1.0-3.0); HEMATOCRIT 34.3 % (37.0-47.0); HEMOGLOBIN 11.3 g/dL (12.0-16.0); LYMPHOCYTES PERCENT AUTO 21.5 % (20.5-50.1); MEAN CORPUSCULAR HEMOGLOBIN 27.8 pg (27.0-34.0); MEAN CORPUSCULAR HGB CONC 32.9 g/dL (33.0-35.0); MEAN CORPUSCULAR VOLUME 84.5 fL (80-100); PLATELET COUNT,PLT 246 10^3/uL (150-450); RED BLOOD CELL COUNT 4.06 10^6/uL (4.2-5.4)
[2024-12-22] MEDS: Morphine 2 MG/ML SYRINGE IVPUSH ONE (19:32)
[2024-12-22] MEDS: Morphine 2 MG/ML SYRINGE ONE (19:34)
[2024-12-22 19:39] LABS: BILIRUBIN,URINE NEGATIVE (NEGATIVE); COLOR,URINE YELLOW (YELLOW); GLUCOSE,URINE NEGATIVE (NEGATIVE); KETONES,URINE NEGATIVE (NEGATIVE); LEUKOCYTE ESTERASE,URINE LARGE (NEGATIVE); NITRITE,URINE NEGATIVE (NEGATIVE); OCCULT BLOOD,URINE NEGATIVE (NEGATIVE); PH,URINE 7.5 (5.0-9.0); PROTEIN,URINE NEGATIVE (NEGATIVE)
[2024-12-22 19:41] LABS: APPEARANCE,URINE SLIGHTLY CLOUDY (CLEAR)
[2024-12-22 19:45] LABS: HCG QUALITATIVE,SERUM NEGATIVE (NEGATIVE)
[2024-12-22 19:47] LABS: WBC,URINE 50-75 /HPF (0-5/HPF)
[2024-12-22 19:48] LABS: BACTERIA,URINE MODERATE /HPF (0-FEW/HPF); EPITHELIAL CELLS,URINE FEW /HPF (NOT SEEN); MUCUS,URINE RARE /LPF (NOT SEEN); RBC,URINE NOT SEEN /HPF (0-5)
[2024-12-22 19:51] LABS: A/G RATIO 1.3; ALANINE AMINOTRANSFERASE,ALT 14 U/L (14-59); ALBUMIN 4.2 g/dL (3.4-5.0); ALKALINE PHOSPHATASE 76 U/L (46-116); ANION GAP 13.3 mEq/L (7-13); ASPARTATE AMNIOTRANSFERASE,AST 14 U/L (15-37); BILIRUBIN TOTAL 0.5 mg/dL (0.2-1.0); BLOOD UREA NITROGEN,BUN 10 mg/dL (7-18); BUN/CREATININE RATIO 10.8 (No establ ref range); CALCIUM 8.8 mg/dL (8.5-10.1); CARBON DIOXIDE,CO2 26 mmol/L (21-32); CHLORIDE,CL 105 mmol/L (98-107); CREATININE 0.93 mg/dL (0.55-1.02); GLUCOSE RANDOM 93 mg/dL (70-99); LIPASE 45 U/L (16-77); POTASSIUM,K 3.3 mmol/L (3.5-5.1); PROTEIN TOTAL,TP 7.4 g/dL (6.4-8.2); SODIUM,NA 141 mmol/L (136-145)
[2024-12-22 19:53] LABS: ESTIMATED GFR 86 mL/min (>=60)
[2024-12-22 19:54] LABS: LACTIC ACID 0.8 mmol/L (0.4-2.0)
[2024-12-22] MEDS: Ketorolac 30 MG/ML SDV IVPUSH ONE (20:36)
[2024-12-22] MEDS: Sulfamethoxazole/Trimethoprim 800-160 MG Tab PO ONE (21:33)
[2024-12-22] MEDS: Take Home: Acetaminophen/HYDROcodone 325-5 MG, 5 Tab Pack PO ONE (21:33)
[2024-12-22 21:41] VITALS: BP 115/70; PULSE 60
== END 2024-12-22 21:44 | disposition home or self-care (01) ==
LOC: DL.ED 18:45
DX: N39.0 Urinary tract infection, site not specified (principal); R07.89 Other chest pain; Z79.899 Other long term (current) drug therapy
CPT/HCPCS: 36415; 71045; 74177; 80053; 81001; 83605; 83690; 84703; 85025; 87086; 96361; 96374; 96375; 99284; 99285; A9270; J1885; J2270; J2405; J7030; Q9967